=== PATIENT | male | born 1995 | race Caucasian/White ===

== ENCOUNTER 2023-04-13 16:23 | Emergency (ER) | payer BC, OTHER, SELFPAY ==
[~2023-04-13] VITALS: Ht 175.3 cm; Wt 111.0 kg
[2023-04-13 16:25] VITALS: BP 150/94; TEMP 97.8; O2SAT 97
== END 2023-04-13 20:22 | disposition left against medical advice (07) ==
LOC: M ED 16:23
DX: Z53.21 Procedure and treatment not carried out due to patient leaving prior to being seen by health care provider (principal)